=== PATIENT | female | born 1980 | race African-American/Black ===

== ENCOUNTER 2020-11-10 20:20 | Emergency (ER) | payer BC ==
[2020-11-10] MEDS ORDERED: Ondansetron ODT 4 MG TAB ONE (21:15)
== END 2020-11-10 22:10 | disposition home or self-care (01) ==
LOC: CSHERS 20:20
DX: R11.10 Vomiting, unspecified (principal); R19.7 Diarrhea, unspecified; J45.909 Unspecified asthma, uncomplicated; D64.9 Anemia, unspecified
CPT/HCPCS: 99283; Q0162

== ENCOUNTER 2021-03-23 22:36 | Emergency (ER) | payer BC ==
[2021-03-23] MEDS ORDERED: Ventolin HFA Inhaler 60 PUFF INHALER ONE (23:23)
== END 2021-03-24 00:50 | disposition home or self-care (01) ==
LOC: CSHERS 22:36
DX: U07.1 COVID-19 (principal); D64.9 Anemia, unspecified; J45.909 Unspecified asthma, uncomplicated; F17.210 Nicotine dependence, cigarettes, uncomplicated
CPT/HCPCS: 94664; 94760

== ENCOUNTER 2023-04-11 16:07 | Emergency (ER) | payer BC, OTHER ==
[2023-04-11] MEDS ORDERED: HYDROcodone/Acetaminophen 5/325 mg Tablet ONE (16:46)
[2023-04-11] MEDS ORDERED: Ibuprofen 200 MG TAB ONE (16:46)
== END 2023-04-11 17:45 | disposition home or self-care (01) ==
LOC: CSHERS 16:07
DX: S60.221A Contusion of right hand, initial encounter (principal); F17.210 Nicotine dependence, cigarettes, uncomplicated; W20.8XXA Other cause of strike by thrown, projected or falling object, initial encounter